=== PATIENT | male | born 1955 | race Caucasian/White ===

== ENCOUNTER 2022-10-13 20:41 | Emergency (ER) | payer OTHER, SELFPAY ==
[2022-10-13 20:42] VITALS: BP 129/81; PULSE 71; RESP 12
[2022-10-13 20:43] VITALS: BP 121/74; PULSE 74; RESP 18; TEMP 36.1; O2SAT 96; BMI 23.6
[2022-10-13 20:54] VITALS: O2SAT 96
--- NOTE | 2022-10-13 20:54 | EKG12_ITS ---
Test Reason : CP Blood Pressure : / mmHG Vent. Rate : 071 BPM Atrial Rate : 071 BPM P-R Int : 168 ms QRS Dur : 108 ms QT Int : 394 ms P-R-T Axes : 061 074 042 degrees QTc Int : 428 ms Normal sinus rhythm Normal ECG Confirmed by ADRIANA MONTAÑO, KINGSLEY ([id number]), content editor ELIANA HOUSE ([id number]) on 10/16/2022 12:25:18 P M Referred By: MARCUS Confirmed By:IRVING WRIGHT MD
--- NOTE | 2022-10-13 21:05 | RAD_ITS ---
EXAM: XR CHEST, 1 VIEW CLINICAL INDICATION: chest pain TECHNIQUE: Frontal view of the chest. This report was created using [employer] report generation technology. COMPARISON: None. FINDINGS: LUNGS AND PLEURAL SPACES: Unremarkable. No consolidation or edema. No pneumothorax. No effusion. HEART: Unremarkable. Cardiac silhouette not enlarged. MEDIASTINUM: Central airways and mediastinal contour are unremarkable. BONES/JOINTS: Unremarkable. SOFT TISSUES: Unremarkable. RAD/Chest 1 View (Portable) IMPRESSION: No radiographic evidence of acute cardiopulmonary disease. Electronically Signed: Edwin Mackay MD at 21:16 EDT ,
[2022-10-13 21:22] LABS: Absolute Lymphocyte Count 1.96 X10^3/uL (0.83-4.51); Absolute Neutrophil Count 3.5 X10^3/uL (2.0-7.7); Basophil# 0.11 X10^3/uL; Basophil% 1.7 % (0-1); Eosinophil# 0.43 X10^3/uL; Eosinophils% 6.5 % (0-5); Hematocrit 47.8 % (40-54); Hemoglobin 15.7 g/dL (13.0-16.5); Lymphocyte # 1.96 X10^3/ul (0.83-4.51); Lymphocyte % 29.7 % (19-41); Mean Corp Hgb Conc 32.8 g/dL (32-36); Mean Corpuscular Hgb 28.9 pg (27.0-32.0); Mean Platelet Vol. 10.5 fl (6.2-12.0); Monocyte# 0.56 X10^3/uL; Monocyte% 8.5 % (0-10); NRBC Flagged by Analyzer 0 % (0-5); Neutrophil # 3.53 X10^3/uL (2.7-7.7); Neutrophil % 53.3 % (47-70); Platelet Count 215 K/mm3 (150-450); RBC Distribution Width CV 13.6 % (11.6-14.6); Red Blood Count 5.43 M/mm3 (4.6-6.2); White Blood Count 6.6 K/mm3 (4.4-11.0)
[2022-10-13 21:44] LABS: Anion Gap 4 (5-15); BUN 21 mg/dL (7-18); BUN/Creat Ratio 21.4 RATIO (10-20); Calcium,Total 9.3 mg/dL (8.5-10.1); Chloride 102 mmol/L (98-107); Creatinine, Serum 0.98 mg/dL (0.70-1.30); EST Glomerular Filtration Rate 81 mL/min (>60); Est Glom Filt Rate - Afr Amer 98 mL/min (>60); Estimated Creatinine Clearance 66.01 ml/min; Glucose 91 mg/dL (74-106); Potassium 4.5 mmol/L (3.5-5.1); Sodium Level 137 mmol/L (136-145); Troponin-I HS 5 pg/mL (3.0-78.0)
--- NOTE | 2022-10-13 21:49 | ED.VIS.CHEST ---
HPI History of Present Illness Chief Complaint: Chest Pain Narrative Narrative: 67-year-old male with a history of mitral valve prolapse and anxiety presenting with intermittent chest pains which he states are pressure-like and burning in nature. He is noted these over the last 2 weeks to come and go. He cannot tell me how long these episodes last. He denies lightheadedness, dizziness, nausea, shortness of breath. He states that he attributes to lifting heavy boxes at work and when he lifts heavy he does sometimes get the symptoms. He denies any cardiac disease other than mitral valve prolapse. He denies in no DVT/PE risk factors. [facility] Medical History Anxiety Home Medications aspirin 81 mg tablet 81 mg PO DAILY 10/13/22 [History Last Taken Unknown] citalopram 20 mg tablet 20 mg PO DAILY 10/13/22 [History Last Taken Unknown] lorazepam 0.5 mg tablet 0.5 mg PO DAILY PRN Anxiety 10/13/22 [History Last Taken Unknown] Allergy/AdvReac Type Severity Reaction Status Date / Time niacin Allergy Rash Verified 10/13/22 20:44 Surgical History History of cholecystectomy Social History Smoking Status: Former smoker ROS ROS ED Constitutional Constitutional ED: Denies chills, fever(s) or sweats Eyes Eyes: Denies blurry vision or change in vision ENT ENT ED: Denies ear pain or sore throat Cardiovascular Cardiovascular: Reports chest pain; Denies palpitations or racing heartbeat Respiratory/Chest Respiratory/Chest: Denies cough, dyspnea or sputum Gastrointestinal Gastrointestinal: Denies abdominal pain, constipation, diarrhea, nausea or vomiting Genitourinary Genitourinary ED: Denies dysuria, hematuria or urinary frequency Musculoskeletal Musculoskeletal: Denies arthralgias, myalgias or neck pain Integumentary Denies abscess, Abrasions or rash Neurologic Neurologic: Denies headache(s), paresthesias or weakness Psychiatric Psychiatric: Denies anxiety, depression, suicidal ideation or suicidal thoughts Endocrine Endocrinology: Denies polydipsia or polyuria EXAM Physical Exam Const Vital Signs: 10/13/22 20:43 10/13/22 20:54 10/13/22 20:54 Temperature 97 F L Temperature Source Temporal Pulse Rate 74 Respiratory Rate 18 Respiratory Effort Normal Non-Labored Blood Pressure 121/74 H Blood Pressure Mean 89 Pulse Ox 96 96 Oxygen Delivery Method Room Air Room Air 10/13/22 20:42 Temperature Temperature Source Pulse Rate 71 Respiratory Rate 12 Respiratory Effort Blood Pressure 129/81 H Blood Pressure Mean 97 Pulse Ox Oxygen Delivery Method Room Air Positive well nourished General Appearance ED: NAD; Negative for pallor HEENT Reports moist mucous membranes normocephalic Eyes PERRL and EOMs intact bilaterally Resp normal respiratory effort and clear to auscultation bilaterally Auscultation: Negative for rales, rhonchi or wheezes Cardio regular rate and regular rhythm Extremity normal to inspection Neuro oriented x3 and CN's II-XII intact bilaterally Sensorium / Orientation: awake and alert Motor Exam: strength 5/5 throughout Psych mental status grossly normal Skin no rashes or lesions noted General Skin Exam: Negative for jaundice or pallor Heart Score History: Slightly/Non-Suspicious ECG: Normal Age: >/= 65 years Risk Factors: 1 or 2 Risk Factors Troponin: </= Normal Limit Score: 3 MDM MDM MDM Narrative Medical decision making narrative: Patient presenting with chest pain which is intermittent until the last 2 days where its been fairly constant and has not gone away. It waxes and wanes in severity. No other red flag symptoms. Differential includes but is not limited to ACS, PE, pneumonia, muscle strain, costochondritis. EKG is a normal sinus rhythm with a ventricular rate of 71 bpm without sign of ischemic change or dysrhythmia on my interpretation. Chest x-ray on my interpretation shows no acute process. CBC and BMP within normal limits. High-sensitivity troponin is 5 after a day and a half of constant pain. I do not believe needs a delta troponin. He is PERC negative. Patient counseled of all findings. His chest pain could be musculoskeletal in nature which is most likely since he is having it while lifting boxes I think he stable for discharge home to follow-up with his PCP. Return precautions were discussed. Impression: 1. Chest pain 2. History of mitral valve prolapse Lab Data Labs: Laboratory Results - last 24 hr 10/13/22 10/13/22 20:55 20:55 WBC 6.6 RBC 5.43 Hgb 15.7 Hct 47.8 MCV 88.0 MCH 28.9 MCHC 32.8 RDW Std Deviation 44.0 H RDW Coeff of Paulina 13.6 Plt Count 215 MPV 10.5 Immature Gran % (Auto) 0.300 Neut % (Auto) 53.3 Lymph % (Auto) 29.7 [place] % (Auto) 8.5 Eos % (Auto) 6.5 H Baso % (Auto) 1.7 H Absolute Neuts (auto) 3.5 Absolute Lymphs (auto) 1.96 Nucleated RBC % 0 Sodium 137 Potassium 4.5 Chloride 102 Carbon Dioxide 31.0 Anion Gap 4 L BUN 21 H Creatinine 0.98 Estim Creat Clear Calc 66.01 Est GFR (MDRD) Af Amer 98 Est GFR (MDRD) Non-Af 81 BUN/Creatinine Ratio 21.4 H Glucose 91 Calcium 9.3 Troponin I High Sens 5 Radiography Diagnostic Testing: Clinical Impression(s) from Imaging Studies Chest X-Ray 10/13/22 21:05 IMPRESSION: No radiographic evidence of acute cardiopulmonary disease. Electronically Signed: Edwin Mackay MD at 21:16 EDT Reading Location ID and State: [facility] / [place] , Service support , Discharge Plan Triage Chief Complaint: Chest Pain ED Provider: Brad Sellers Dx/Rx/DC Orders Prescriptions: No Action aspirin 81 mg Tablet 81 mg PO DAILY citalopram 20 mg Tablet 20 mg PO DAILY lorazepam 0.5 mg Tablet 0.5 mg PO DAILY PRN (Reason: Anxiety) Primary Care Provider: Daly Falcon NP Referrals: Daly Falcon YARD MOTOR OPERATOR, YARD MOTOR OPERATOR-C [Primary Care Provider] -
[2022-10-13 22:09] VITALS: BP 118/82; PULSE 72; RESP 15; O2SAT 96
== END 2022-10-13 22:22 | disposition home or self-care (01) ==
PROVIDERS: Emergency Provider Student in an Organized Health Care Education/Training Program; PCP Nurse Practitioner Family; Visit Provider Student in an Organized Health Care Education/Training Program
DX: R07.9 Chest pain, unspecified (principal); Z87.891 Personal history of nicotine dependence; F41.9 Anxiety disorder, unspecified; Z79.82 Long term (current) use of aspirin; I34.0 Nonrheumatic mitral (valve) insufficiency
CPT/HCPCS: 71045; 80048; 84484; 85025; 93005; 99284